=== PATIENT | female | born 1960 | race Caucasian/White ===

== ENCOUNTER 2017-01-25 19:38 | Inpatient (IN) | payer OTHER ==
--- NOTE | 2017-01-25 21:52 | PDOC ---
History of Present Illness - General History Source: Patient <Luis Alberto De Leon - Last Filed: 01/26/17 01:59> - General History Source: Patient Exam Limitations: No Limitations - History of Present Illness Initial Comments: 01/25/17 22:03 The patient is a 56 year old female with a significant past medical history of HTN (compliant with medication), who presents to the emergency department with abdominal pain for one month and bright red blood in stool for 2 weeks. The patient notes that her pain is exacerbated during and after eating. The patient states that her pain is intermittent and usually resolves on its own before reoccurring. She notes that she wanted to see if pain would resolve on it own because she is vacationing in [place]. She denies any fever, sick contacts, vomiting, nausea, or urinary complaints. PAST MEDICAL HISTORY: No significant history reported PAST SURGICAL HISTORY: Hysterectomy FAMILY HISTORY: Father: Heart Disease. Brother: Diabetes. SOCIAL HISTORY: None reported ALLERGIES: NKDA MEDICATIONS: Reviewed <Humberto Salamanca - Last Filed: 01/26/17 06:42> - General Chief Complaint: Pain, Acute Stated Complaint: RECTAL BLEED, VOMITING Time Seen by Provider: 01/25/17 19:55 Past History - Past Medical History GI Disorders: Yes (HEMORRHOIDS, constipation) HTN: Yes - Family Disease History Family Disease History: Diabetes: Brother, Heart Disease: Father - Psycho/Social/Smoking Cessation Hx Anxiety: No Suicidal Ideation: No Smoking History: Never smoked Hx Alcohol Use: No Drug/Substance Use Hx: No Substance Use Type: None <OttorobertLuis Alberto - Last Filed: 01/26/17 01:59> <Humberto Salamanca - Last Filed: 01/26/17 06:42> - Past Medical History Allergies/Adverse Reactions: Allergies Allergy/AdvReac Type Severity Reaction Status Date / Time No Known Allergies Allergy Verified 01/25/17 19:56 Home Medications: Ambulatory Orders Unobtainable [Unobtainable] 01/25/17 Review of Systems - Review of Systems Able to Perform ROS?: Yes Comments:: 01/25/17 22:03 CONSTITUTIONAL: Absent: fever, chills, diaphoresis, generalized weakness, malaise, loss of appetite HEENT: Absent: rhinorrhea, nasal congestion, throat pain, throat swelling, difficulty swallowing, mouth swelling, ear pain, eye pain, visual Changes CARDIOVASCULAR: Absent: chest pain, syncope, palpitations, irregular heart rate, lightheadedness , peripheral edema RESPIRATORY: Absent: cough, shortness of breath, dyspnea with exertion, orthopnea, wheezing, stridor, hemoptysis GASTROINTESTINAL: Present: Abdominal pain, bright red blood in stool. Absent: abdominal distension, nausea, vomiting, diarrhea, constipation, melena GENITOURINARY: Absent: dysuria, frequency, urgency, hesitancy, hematuria, flank pain, genital pain MUSCULOSKELETAL: Absent: myalgia, arthralgia, joint swelling SKIN: Absent: rash, itching, pallor HEMATOLOGIC/IMMUNOLOGIC: Absent: easy bleeding, easy bruising, lymphadenopathy, frequent infections ENDOCRINE: Absent: unexplained weight gain, unexplained weight loss, heat intolerance, cold intolerance NEUROLOGIC: Absent: headache, focal weakness or paresthesias, dizziness, unsteady gait, seizure, mental status changes, bladder or bowel incontinence PSYCHIATRIC: Absent: anxiety, depression, suicidal or homicidal ideation, hallucinations. <Humberto Salamanca - Last Filed: 01/26/17 06:42> *Physical Exam - Vital Signs Last Vital Signs Temp Pulse Resp BP Pulse Ox 98.5 F 85 18 152/99 97 01/25/17 20:03 01/25/17 20:03 01/25/17 20:03 01/25/17 20:03 01/25/17 20:03 <Luis Alberto De Leon - Last Filed: 01/26/17 01:59> - Vital Signs Last Vital Signs Temp Pulse Resp BP Pulse Ox 98.5 F 85 18 152/99 97 01/25/17 20:03 01/25/17 20:03 01/25/17 20:03 01/25/17 20:03 01/25/17 20:03 - Physical Exam Comments: 01/25/17 22:03 GENERAL: Well developed, well nourished. Awake and alert. In no acute distress. HEENT: Normocephalic, atraumatic. PERRLA, EOMI. No conjunctival pallor. Sclerae are non -icteric. Moist mucous membranes. Oropharynx is clear. NECK: Supple. Full ROM. No JVD. Carotid pulses 2+ and symmetric, without bruits. No thyromegaly. No lymphadenopathy. CARDIOVASCULAR: Regular rate and rhythm. No murmurs, rubs, or gallops. Distal pulses are 2+ and symmetric. PULMONARY: No evidence of respiratory distress. Lungs clear to auscultation bilaterally. No wheezing, rales or rhonchi. ABDOMINAL: Soft. Non-tender. Non-distended. No rebound or guarding. No organomegaly. Normoactive bowel sounds. MUSCULOSKELETAL Normal range of motion at all joints. No bony deformities or tenderness. No CVA tenderness. RECTAL: Hem negative, brown stool pods of external hemorrhoids EXTREMITIES: No cyanosis. No clubbing. No edema. No calf tenderness. SKIN: Warm and dry. Normal capillary refill. No rashes. No jaundice. NEUROLOGICAL: Alert, awake, appropriate. Cranial nerves 2-12 intact. No deficits to light touch and temperature in face, upper extremities and lower extremities. No motor deficits in the in face, upper extremities and lower extremities. Normoreflexic in the upper and lower extremities. Normal speech. Toes are downgoing bilaterally. Gait is normal without ataxia. PSYCHIATRIC: Cooperative. Good eye contact. Appropriate mood and affect. <Humberto Salamanca - Last Filed: 01/26/17 06:42> Heart Score/ECG Review - ECG Impressions Comment:: 01/26/17 03:03 Normal sinus rhythm. Nonspecific T wave abnormality. Prolonged QT. Abnormal ECG. <Humberto Salamanca - Last Filed: 01/26/17 06:42> ED Treatment Course - LABORATORY CBC & Chemistry Diagram: 01/25/17 22:05 01/25/17 22:05 <Luis Alberto De Leon - Last Filed: 01/26/17 01:59> - LABORATORY CBC & Chemistry Diagram: 01/26/17 06:05 01/25/17 22:05 - RADIOLOGY Radiograph Interpretation: 01/26/17 00:18 EXAM: CHEST X-RAY. IMPRESSION: No new acute pathology appreciated. Waiting for official report. 01/26/17 01:53 Exam: Contrast-enhanced CT abdomen and pelvis Images: 337 Clinical indication : Pain and bleeding. Findings: The lung bases are clear. The liver, gallbladder spleen and pancreas all have a normal appearance. The adrenal glands are unremarkable. The kidneys have a normal appearance and enhance symmetrically. There is no evidence of urinary tract obstruction. Contrast has transited from the stomach to mid small bowel loops. Segments of small bowel in the midabdomen are distended up to 3 cm in diameter. A transition point is not clearly identified. There is stranding and fluid seen throughout the central small bowel mesentery. Distal bowel loops in the pelvis are nondistended. Free fluid is noted in the pelvis. Gas and stool is seen throughout the colon. The patient is status post hysterectomy. The urinary bladder is not entirely included. The pubic symphysis and urinary bladder are not included on the axial images. Reformatted image of the inferior pelvis demonstrate post hysterectomy change in the normal appearance of the urinary bladder. A midline incisional scar is seen below the umbilicus. No abdominal or pelvic adenopathy is seen. No lytic or blastic destructive osseous lesions are seen. Impression: Findings consistent with an early or incomplete bowel obstruction. The transition point is not clearly identified but appears to involve the mid to distal bowel, likely secondary to post hysterectomy adhesions. THIS DOCUMENT HAS BEEN ELECTRONICALLY SIGNED Fermin Woods M.D. 01/26/2017 01:51 EST <Humberto Salamanca - Last Filed: 01/26/17 06:42> Medical Decision Making - Medical Decision Making 01/26/17 01:59 Dr. De Leon: The scribe's documentation has been prepared under my direction and personally reviewed by me in its entirery. I confirm that the note above accurately reflects all work, treatment, procedures, and medical decision making performed by me. <Luis Alberto De Leon - Last Filed: 01/26/17 01:59> *DC/Admit/Observation/Transfer - Discharge Dispostion Admit: Yes <Luis Alberto De Leon - Last Filed: 01/26/17 01:59> - Attestations Scribe Attestion: 01/25/17 22:04 Documentation prepared by Humberto Salamanca, acting as medical billing manager for Luis Ablerto De Leon DO. <Humberto Salamanca - Last Filed: 01/26/17 06:42> Diagnosis at time of Disposition: SBO (small bowel obstruction)
[2017-01-25] MEDS ORDERED: SODIUM CHLORIDE 1,000 ML IV STA (21:53)
[2017-01-25 22:23] LABS: BASOPHIL 0.3 % (0-2.0); EOSINOPHIL 0.2 % (0-4.5); MCH 30.4 pg (25.7-33.7); MCHC 33.6 g/dl (32.0-36.0); MEAN CELL VOLUME 90.5 fl (80-96); NEUTROPHILS 84.8 % (42.8-82.8); PLATELET COUNT 237 K/MM3 (134-434); RDW 13.3 % (11.6-15.6); WHITE BLOOD COUNT 10.1 K/mm3 (4.0-10.0)
[2017-01-25 22:35] LABS: INR 1.05 (0.82-1.09); PROTHROMBIN TIME (PATIENT) 11.6 SEC (9.98-11.88)
[2017-01-25 22:41] LABS: MAGNESIUM 2.3 mg/dL (1.8-2.4)
[2017-01-25 22:44] LABS: AMYLASE 90 U/L (25-115); ANION GAP 6 (8-16); BILIRUBIN,TOTAL 0.4 mg/dL (0.2-1.0); CALCIUM 9.9 mg/dL (8.5-10.1); CO2 32 mmol/L (21-32); CREATININE 0.9 mg/dL (0.55-1.02); GLUCOSE,RANDOM 126 mg/dL (74-106); SGOT/AST 18 U/L (15-37); SGPT/ALT 17 U/L (12-78); TOT PROT 7.3 g/dl (6.4-8.2)
[2017-01-25 22:45] LABS: ALK PHOS 62 U/L (45-117)
--- NOTE | 2017-01-26 02:33 | HP ---
<Brina Lopez - Last Filed: 01/26/17 03:25> CHIEF COMPLAINT: Abdominal pain x1 month and bright red blood in stool x2 weeks. PCP: None HISTORY OF PRESENT ILLNESS: 56 yo F with a PMHx of HTN who presents with abdominal pain x1 month. Pain worsened with eating. Also notes bright red blood in stool x2 weeks with prior Hx of hemorrhoids. Patient states that pain is intermittent in nature. Last BM was 7am in the morning. Patient denies diarrhea. Patient endorses vomiting x5 today. Patient states she feels a burning sensation in her abdomen when she gets hungry. Patient states shes had hemorrhoids bleeding in past, she thinks this bleeding is from her hemorrhoids. ER course was notable for: (1) CT abdomen with incomplete SBO (2) Mild leukocytosis at 10.1 (3) Rectal exam positive for hemorrhoids Recent Travel: Yes, came to [place] from [facility] 1 month ago PAST MEDICAL HISTORY: HTN, hemorrhoids PAST SURGICAL HISTORY: Hysterectomy Social History: Smoking: denies Alcohol: denies Drugs: denies Family History: Nonobtainable Allergies No Known Allergies Allergy (Verified 01/25/17 19:56) HOME MEDICATIONS: Home Medications Medication Instructions Recorded Unobtainable [Unobtainable] 01/25/17 REVIEW OF SYSTEMS CONSTITUTIONAL: Absent: fever, chills, diaphoresis, generalized weakness, malaise, loss of appetite, weight change HEENT: Absent: rhinorrhea, nasal congestion, throat pain, throat swelling, difficulty swallowing, mouth swelling, ear pain, eye pain, visual changes CARDIOVASCULAR: Absent: chest pain, syncope, palpitations, irregular heart rate, lightheadedness , peripheral edema RESPIRATORY: Absent: cough, shortness of breath, dyspnea with exertion, orthopnea, wheezing, stridor, hemoptysis GASTROINTESTINAL: +Abdominal pain, nausea, vomiting x5, hematochezia Absent: abdominal distension, diarrhea, constipation, melena GENITOURINARY: Absent: dysuria, frequency, urgency, hesitancy, hematuria, flank pain, genital pain MUSCULOSKELETAL: Absent: myalgia, arthralgia, joint swelling, back pain, neck pain SKIN: Absent: rash, itching, pallor HEMATOLOGIC/IMMUNOLOGIC: Absent: easy bleeding, easy bruising, lymphadenopathy, frequent infections ENDOCRINE: Absent: unexplained weight gain, unexplained weight loss, heat intolerance, cold intolerance NEUROLOGIC: Absent: headache, focal weakness or paresthesias, dizziness, unsteady gait, seizure, mental status changes, bladder or bowel incontinence PSYCHIATRIC: Absent: anxiety, depression, suicidal or homicidal ideation, hallucinations. PHYSICAL EXAMINATION GENERAL: Awake, alert, and fully oriented, in no acute distress. HEAD: Normal with no signs of trauma. EYES: Pupils equal, round and reactive to light, extraocular movements intact, sclera anicteric, conjunctiva clear. No lid lag. EARS, NOSE, THROAT: Ears normal, nares patent, oropharynx clear without exudates. Moist mucous membranes. NECK: Normal range of motion, supple without lymphadenopathy, JVD, or masses. LUNGS: Breath sounds equal, clear to auscultation bilaterally. No wheezes, and no crackles. No accessory muscle use. HEART: Regular rate and rhythm, normal S1 and S2 without murmur, rub or gallop. ABDOMEN: Soft, nontender, not distended, normoactive bowel sounds, no guarding, no rebound, no masses. No hepatomegaly or splenomegaly. Midline surgical scar. RECTAL EXAM: External hemorrhoids. Brown stool in rectal vault no fissures. MUSCULOSKELETAL: Normal range of motion at all joints. No bony deformities or tenderness. No CVA tenderness. UPPER EXTREMITIES: 2+ pulses, warm, well-perfused. No cyanosis. No clubbing. No peripheral edema. LOWER EXTREMITIES: 2+ pulses, warm, well-perfused. No calf tenderness. No peripheral edema. NEUROLOGICAL: Cranial nerves II-XII intact. Normal speech. Gait not assessed. PSYCHIATRIC: Cooperative. Good eye contact. Appropriate mood and affect. SKIN: Warm, dry, normal turgor, no rashes or lesions noted, normal capillary refill. Laboratory Results - last 24 hr 01/26/17 03:10 Stool Occult Blood Negative CT Abdomen and Pelvis Exam: Contrast-enhanced CT abdomen and pelvis Images: 337 Clinical indication : Pain and bleeding. Findings: The lung bases are clear. The liver, gallbladder spleen and pancreas all have a normal appearance. The adrenal glands are unremarkable. The kidneys have a normal appearance and enhance symmetrically. There is no evidence of urinary tract obstruction. Contrast has transited from the stomach to mid small bowel loops. Segments of small bowel in the midabdomen are distended up to 3 cm in diameter. A transition point is not clearly identified. There is stranding and fluid seen throughout the central small bowel mesentery. Distal bowel loops in the pelvis are nondistended. Free fluid is noted in the pelvis. Gas and stool is seen throughout the colon. The patient is status post hysterectomy. The urinary bladder is not entirely included. The pubic symphysis and urinary bladder are not included on the axial images. Reformatted image of the inferior pelvis demonstrate post hysterectomy change in the normal appearance of the urinary bladder. A midline incisional scar is seen below the umbilicus. No abdominal or pelvic adenopathy is seen. No lytic or blastic destructive osseous lesions are seen. Impression: Findings consistent with an early or incomplete bowel obstruction. The transition point is not clearly identified but appears to involve the mid to distal bowel, likely secondary to post hysterectomy adhesions. THIS DOCUMENT HAS BEEN ELECTRONICALLY SIGNED Fermin Woods M.D. 01/26/2017 01:51 EST ECG NSR @ 71 with QTC 471 ASSESSMENT/PLAN: 56 yo F with a PMHx of HTN who presents with abdominal pain and bright red blood per rectum being admitted for SBO and GI bleed. 1.) SBO -NPO -IVF -Type and Screen -Surgery consult -NGT 2.) Bright red blood per rectum. Most likely hemorrhoidal -HGB stable. Repeat in 6 hours -Coags -GI consult if decrease in HGB -IVF -Stool cult 3.) HTN -Unknown home meds -Pts from [facility] -Repeat BP, if uncontrolled give Amlodipine DVT ppx -Low risk -SCDs Documentation is prepared by Brina Lopez acting as medical records assistant for Samantha Perdue D.O. <Samantha Perdue - Last Filed: 01/27/17 07:14> CHIEF COMPLAINT: PCP: HISTORY OF PRESENT ILLNESS: ER course was notable for: (1) (2) (3) Recent Travel: PAST MEDICAL HISTORY: PAST SURGICAL HISTORY: Social History: Smoking: Alcohol: Drugs: Family History: Allergies No Known Allergies Allergy (Verified 01/25/17 19:56) HOME MEDICATIONS: Home Medications Medication Instructions Recorded Unobtainable [Unobtainable] 01/25/17 REVIEW OF SYSTEMS CONSTITUTIONAL: Absent: fever, chills, diaphoresis, generalized weakness, malaise, loss of appetite, weight change HEENT: Absent: rhinorrhea, nasal congestion, throat pain, throat swelling, difficulty swallowing, mouth swelling, ear pain, eye pain, visual changes CARDIOVASCULAR: Absent: chest pain, syncope, palpitations, irregular heart rate, lightheadedness , peripheral edema RESPIRATORY: Absent: cough, shortness of breath, dyspnea with exertion, orthopnea, wheezing, stridor, hemoptysis GASTROINTESTINAL: Absent: abdominal pain, abdominal distension, nausea, vomiting, diarrhea, constipation, melena, hematochezia GENITOURINARY: Absent: dysuria, frequency, urgency, hesitancy, hematuria, flank pain, genital pain MUSCULOSKELETAL: Absent: myalgia, arthralgia, joint swelling, back pain, neck pain SKIN: Absent: rash, itching, pallor HEMATOLOGIC/IMMUNOLOGIC: Absent: easy bleeding, easy bruising, lymphadenopathy, frequent infections ENDOCRINE: Absent: unexplained weight gain, unexplained weight loss, heat intolerance, cold intolerance NEUROLOGIC: Absent: headache, focal weakness or paresthesias, dizziness, unsteady gait, seizure, mental status changes, bladder or bowel incontinence PSYCHIATRIC: Absent: anxiety, depression, suicidal or homicidal ideation, hallucinations. PHYSICAL EXAMINATION GENERAL: Awake, alert, and fully oriented, in no acute distress. HEAD: Normal with no signs of trauma. EYES: Pupils equal, round and reactive to light, extraocular movements intact, sclera anicteric, conjunctiva clear. No lid lag. EARS, NOSE, THROAT: Ears normal, nares patent, oropharynx clear without exudates. Moist mucous membranes. NECK: Normal range of motion, supple without lymphadenopathy, JVD, or masses. LUNGS: Breath sounds equal, clear to auscultation bilaterally. No wheezes, and no crackles. No accessory muscle use. HEART: Regular rate and rhythm, normal S1 and S2 without murmur, rub or gallop. ABDOMEN: Soft, nontender, not distended, normoactive bowel sounds, no guarding, no rebound, no masses. No hepatomegaly or splenomegaly. MUSCULOSKELETAL: Normal range of motion at all joints. No bony deformities or tenderness. No CVA tenderness. UPPER EXTREMITIES: 2+ pulses, warm, well-perfused. No cyanosis. No clubbing. No peripheral edema. LOWER EXTREMITIES: 2+ pulses, warm, well-perfused. No calf tenderness. No peripheral edema. NEUROLOGICAL: Cranial nerves II-XII intact. Normal speech. Normal gait. PSYCHIATRIC: Cooperative. Good eye contact. Appropriate mood and affect. SKIN: Warm, dry, normal turgor, no rashes or lesions noted, normal capillary refill. ASSESSMENT/PLAN: Visit type - Emergency Visit Emergency Visit: Yes ED Registration Date: 01/26/17 Care time: The patient presented to the Emergency Department on the above date and was hospitalized for further evaluation of their emergent condition. - New Patient This patient is new to me today: Yes Date on this admission: 01/27/17 - Critical Care Critical Care patient: No
[2017-01-26] MEDS ORDERED: SODIUM CHLORIDE 1,000 ML IV SCH (02:45)
[2017-01-26] MEDS: SODIUM CHLORIDE 1,000 ML IV SCH (03:26)
[2017-01-26 06:15] LABS: MCH 30.3 pg (25.7-33.7); MCHC 33.4 g/dl (32.0-36.0); MEAN CELL VOLUME 90.7 fl (80-96); MEAN PLT VOLUME 7.8 fl (7.5-11.1); PLATELET COUNT 220 K/MM3 (134-434); RDW 13.1 % (11.6-15.6); WHITE BLOOD COUNT 7.9 K/mm3 (4.0-10.0)
[2017-01-26 06:28] LABS: INR 1.05 (0.82-1.09); PROTHROMBIN TIME (PATIENT) 11.6 SEC (9.98-11.88)
[2017-01-26 06:31] LABS: ACTIVATED PTT 33.2 SECONDS (26.9-34.4)
[2017-01-26 06:43] LABS: ANION GAP 7 (8-16); CALCIUM 8.3 mg/dL (8.5-10.1); CO2 30 mmol/L (21-32); CREATININE 0.6 mg/dL (0.55-1.02); GLUCOSE,RANDOM 98 mg/dL (74-106)
[2017-01-26 06:51] VITALS: BMI 30.4
--- NOTE | 2017-01-26 07:46 | CONSULT ---
Consult Consult Specialty:: Surgery Reason for Consultation:: Rectal bleeding, intestinal obstruction. - History of Present Illness Chief Complaint: Rectal bleeding, and right lower abdominal pain. - History Source History Provided By: Patient Limitations to Obtaining History: Language Barrier (Speaks Portugese) - Past Medical History ...: No - Past Surgical History Additional Surgical History: Lower abdominal midline surgical scar, ? manager intern surgery. - Alcohol/Substance Use Hx Alcohol Use: Yes (occaissional social drink) - Smoking History Smoking history: Former smoker Have you smoked in the past 12 months: No If you are a former smoker, when did you quit?: 14 years ago Home Medications - Allergies Allergies/Adverse Reactions: Allergies Allergy/AdvReac Type Severity Reaction Status Date / Time No Known Allergies Allergy Verified 01/25/17 19:56 - Home Medications Home Medications: Ambulatory Orders Captopril 25 mg PO DAILY 01/26/17 Folic Acid 1 mg PO DAILY 01/26/17 Non-Formulary 0 mg PO ASDIR 01/26/17 Valsartan/Hydrochlorothiazide [Valsartan-Hctz 160-12.5 mg Tab] 1 each PO DAILY 01/26/17 Physical Exam Vital Signs: Vital Signs Temperature 97.7 F 01/26/17 06:36 Pulse Rate 73 01/26/17 06:36 Respiratory Rate 18 01/26/17 06:36 Blood Pressure 159/99 01/26/17 06:36 O2 Sat by Pulse Oximetry (%) 98 01/26/17 06:02 Gastrointestinal: Yes: Other (? Some fullness in the right lower quadrtant of abdomen. No distinct mass is palpable.) Labs: CBC, BMP 01/26/17 06:05 01/26/17 06:05 Imaging - Results X-ray: Report Reviewed, Image Reviewed Cat Scan: Report Reviewed, Image Reviewed (Dilated loops of small bowel upto 3 cm. with air and stool on the colon. Fuid in the pelvis. Edematous mesentery.) Problem List - Problems (1) SBO (small bowel obstruction) Code(s): K56.69 - OTHER INTESTINAL OBSTRUCTION (2) Abdominal pain Code(s): R10.9 - UNSPECIFIED ABDOMINAL PAIN Qualifiers: Abdominal location: right lower quadrant Qualified Code(s): R10.31 - Right lower quadrant pain (3) Rectal bleeding Code(s): K62.5 - HEMORRHAGE OF ANUS AND RECTUM Assessment/Plan Place NG tube v, and connect it to suction. G.I consultation for sigmoidoscopy. Follow up abdominal X-ray., and lab work.
[2017-01-26] MEDS ORDERED: LIDOCAINE HCL 2% (50ML VIAL) SQ ONE (11:01)
[2017-01-26] MEDS ORDERED: LIDOCAINE VISCOUS 2% ORAL/TOP 100 ML BOTTLE MM ONE (11:15)
--- NOTE | 2017-01-26 11:36 | EKG ---
Test Reason : Blood Pressure : / mmHG Vent. Rate : 071 BPM Atrial Rate : 071 BPM P-R Int : 180 ms QRS Dur : 088 ms QT Int : 434 ms P-R-T Axes : 062 041 066 degrees QTc Int : 471 ms NORMAL SINUS RHYTHM NONSPECIFIC T WAVE ABNORMALITY PROLONGED QT ABNORMAL ECG NO PREVIOUS ECGS AVAILABLE Confirmed by JANNA SILVA, LOUIS ([id number]) on 01/26/2017 11:36:00 AM Referred By: Confirmed By:LOUIS SALDIVAR MD
--- NOTE | 2017-01-26 13:47 | HOSP ---
Physical Examination Vital Signs: Vital Signs Temperature 97.8 F 01/26/17 10:00 Pulse Rate 76 01/26/17 10:00 Respiratory Rate 18 01/26/17 10:00 Blood Pressure 148/92 01/26/17 10:00 O2 Sat by Pulse Oximetry (%) 97 01/26/17 09:00 Labs: CBC, BMP 01/26/17 06:05 01/26/17 06:05 Hospitalist Encounter Assessment: Called to place NGT after unsuccessful attempts x3. Nares prepped with Viscous Lidocaine and left in place for 20 minutes. Nebulized lidocaine given also. 16F NGT placed in right nare without difficulty. Advanced to 60cm reginald. Secured with commercially prepared device. Pt tolerated procedure well. Gurgling over stomach appreciated s/p insertion. CXR shows distal tip of NGT past the EG junction over stomach. NGT connected to LWS.
--- NOTE | 2017-01-26 16:11 | CON.GI ---
Consult Consult Specialty:: GI Referred by:: Dr. Vega Reason for Consultation:: Rectal bleeding - History of Present Illness Chief Complaint: Abdominal pain and vomiting History of Present Illness: 56 year old woman visiting from [facility] admitted for evaluation of abdominal pain N/V. CT scan revealed partial SBO, patient was seen by Dr. Vega the surgeon and NGT was placed. Her daughter tells me that Ms. Ling has had intermittent blood mixed in her stool with bowel movements. She has never had an upper endoscopy or colonoscopy. There is no family history of colorectal cancer or other GI malignancy. Her last BM was today. - History Source History Provided By: Patient, Family Member Limitations to Obtaining History: No Limitations - Past Medical History Cardio/Vascular: Yes: HTN ...: No - Past Surgical History Past Surgical History: Yes: Hysterectomy (with removal of 1 ovary) Additional Surgical History: right ankle surgery x 2, ? adenoid surgery - Alcohol/Substance Use Hx Alcohol Use: Yes (occaissional social drink) History of Substance Use: reports: None - Smoking History Smoking history: Former smoker Have you smoked in the past 12 months: No If you are a former smoker, when did you quit?: 14 years ago - Social History Usual Living Arrangement: With Spouse ADL: Independent Occupation: retired Place of : Other ([facility]) History of Recent Travel: Yes (from [facility] to ) Home Medications - Allergies Allergies/Adverse Reactions: Allergies Allergy/AdvReac Type Severity Reaction Status Date / Time No Known Allergies Allergy Verified 01/25/17 19:56 - Home Medications Home Medications: Ambulatory Orders Captopril 25 mg PO DAILY 01/26/17 Folic Acid 1 mg PO DAILY 01/26/17 Non-Formulary 0 mg PO ASDIR 01/26/17 Valsartan/Hydrochlorothiazide [Valsartan-Hctz 160-12.5 mg Tab] 1 each PO DAILY 01/26/17 Family Disease History - Family Disease History Family Disease History: Other: Father ( 84 from intestinal bleeding), Mother ( 85, unclear cause), Brother (3 brothers, 1 w/ CAD) Other Family History: No family history of colorectal cancer or other GI malignancy Review of Systems - Review of Systems Constitutional: denies: Weakness Cardiovascular: denies: Chest Pain Respiratory: denies: SOB Gastrointestinal: reports: Abdominal Pain, Rectal Bleeding, Vomiting Physical Exam-GI Vital Signs: Vital Signs Temperature 99.9 F H 01/26/17 14:00 Pulse Rate 83 01/26/17 14:00 Respiratory Rate 16 01/26/17 14:00 Blood Pressure 146/91 01/26/17 14:00 O2 Sat by Pulse Oximetry (%) 97 01/26/17 09:00 Constitutional: Yes: Calm Eyes: No: Sclera Icterus Cardiovascular: Yes: Regular Rate and Rhythm Respiratory: Yes: CTA Bilaterally Gastrointestinal Inspection: Yes: Distention ...Auscultate: Yes: Normoactive Bowel Sounds ...Palpate: Yes: Tenderness ...Percussion: Yes: Tympanitic (mildly tympanitic) ...Rectal Exam: Yes: Other (No external lesions, no masses, no stool to guaiac, no blood) Edema: No Neurological: Yes: Alert, Oriented Labs: CBC, BMP 01/26/17 06:05 01/26/17 06:05 INR, PTT INR 1.05 (0.82-1.09) 01/26/17 06:05 Imaging - Results Cat Scan: Report Reviewed, Image Reviewed Problem List - Problems (1) SBO (small bowel obstruction) Assessment/Plan: Evaluated by surgery Currently with NGT decompression Code(s): K56.69 - OTHER INTESTINAL OBSTRUCTION (2) Rectal bleeding Assessment/Plan: No overt rectal bleed currently. When cleared from bowel obstruction, colonoscopy can be undertaken prior to discharge if feasible. I discussed this with Ms. Ling and her daughter. Please recall when she is cleared for colonoscopy/bowel prep Code(s): K62.5 - HEMORRHAGE OF ANUS AND RECTUM
[2017-01-26] MEDS ORDERED: ACETAMINOPHEN 650 MG SUPP.RECT PR PRN (22:15)
[2017-01-27] MEDS: SODIUM CHLORIDE 1,000 ML IV SCH ×2 (04:15→17:08)
--- NOTE | 2017-01-27 15:24 | PN ---
Physical Exam: SUBJECTIVE: Patient seen and examined. Her abd pain is less. She is + bm and + flatuance events - low grade fever last niht 100.4 OBJECTIVE: Vital Signs Period Temp Pulse Resp BP Sys/Mathew Pulse Ox Last 24 Hr 98.3 F-100.4 F 81-93 16-20 124-153/83-97 96-96 PE Neuro: alert, awake, cn 2-12intact HEENT: NGT light brown output Pulm: CTAB CV: s1 s2 rrr no mrg Abd: epigastric tenderness Ext: Warm no le edema Active Medications Generic Name Dose Route Start Last Admin Trade Name Freq PRN Reason Stop Dose Admin Acetaminophen 650 mg 01/26/17 22:15 01/26/17 22:36 Tylenol Suppository - [place] 650 mg Q6H PRN Administration FEVER OR PAIN Sodium Chloride 1,000 mls @ 75 mls/hr 01/26/17 03:24 01/27/17 04:15 Normal Saline - IV 75 mls/hr ASDIR ROGERS Administration Assessment: 56 year old female with a PMHx of HTN who presents with abdominal pain and bright red blood per rectum being admitted for SBO and GI bleed. 1. SBO - Today abd xray pending read - NGT in place - NS 75cc/hr - Surgery 2. Rectal bleeding - Stool occult negative - Will need bowel prep and colonoscopy before discharge - GI to preform once ready 3. HTN - Stable without meds - Unknown abby med from home - If rises consider amlodipine Visit type - Emergency Visit Emergency Visit: Yes ED Registration Date: 01/26/17 Care time: The patient presented to the Emergency Department on the above date and was hospitalized for further evaluation of their emergent condition. - New Patient This patient is new to me today: Yes Date on this admission: 01/27/17 - Critical Care Critical Care patient: No
--- NOTE | 2017-01-28 11:50 | PN ---
Progress Note (short form) - Note Progress Note: SUBJECTIVE: The patient was seen and examined at the bedside, she reports having a bowel movement this morning and is passing gas F/u abd x-ray today Spoke to Dr. Parada who states will see the patient this afternoon Current Medications Generic Name Dose Route Start Last Admin Trade Name Freq PRN Reason Stop Dose Admin Acetaminophen 650 mg 01/26/17 22:15 01/26/17 22:36 Tylenol Suppository - [place] 650 mg Q6H PRN Administration FEVER OR PAIN Sodium Chloride 1,000 mls @ 75 mls/hr 01/26/17 03:24 01/27/17 17:08 Normal Saline - IV 75 mls/hr ASDIR ROGERS Administration OBJECTIVE: Vital Signs Period Temp Pulse Resp BP Sys/Mathew Pulse Ox Last 24 Hr 98.7 F-99.8 F 78-87 16-20 143-151/84-95 95-96 Physical Exam: General: NAD, A&Ox3 HEENT: NGT with clear brown output Lungs: CTA bilaterally Heart: RRR, S1S2 Abd: Soft, non-tender, non-distended. Normoactive bowel sounds Ext: Warm, well-perfused. 2+ DP/Pt bilaterally Neuro: CN 2-12 intact CBCD WBC 7.9 K/mm3 (4.0-10.0) 01/26/17 06:05 RBC 3.86 M/mm3 (3.60-5.2) 01/26/17 06:05 Hgb 11.7 GM/dL (10.7-15.3) 01/26/17 06:05 Hct 35.0 % (32.4-45.2) 01/26/17 06:05 MCV 90.7 fl (80-96) 01/26/17 06:05 MCHC 33.4 g/dl (32.0-36.0) 01/26/17 06:05 RDW 13.1 % (11.6-15.6) 01/26/17 06:05 Plt Count 220 K/MM3 (134-434) 01/26/17 06:05 MPV 7.8 fl (7.5-11.1) 01/26/17 06:05 CMP Sodium 142 mmol/L (136-145) 01/26/17 06:05 Potassium 4.2 mmol/L (3.5-5.1) 01/26/17 06:05 Chloride 105 mmol/L (98-107) 01/26/17 06:05 Carbon Dioxide 30 mmol/L (21-32) 01/26/17 06:05 Anion Gap 7 (8-16) L 01/26/17 06:05 BUN 12 mg/dL (7-18) D 01/26/17 06:05 Creatinine 0.6 mg/dL (0.55-1.02) D 01/26/17 06:05 Creat Clearance w eGFR > 60 (>60) 01/25/17 22:05 Random Glucose 98 mg/dL (74-106) D 01/26/17 06:05 Calcium 8.3 mg/dL (8.5-10.1) L 01/26/17 06:05 Total Bilirubin 0.4 mg/dL (0.2-1.0) 01/25/17 22:05 AST 18 U/L (15-37) 01/25/17 22:05 ALT 17 U/L (12-78) 01/25/17 22:05 Alkaline Phosphatase 62 U/L (45-117) 01/25/17 22:05 Total Protein 7.3 g/dl (6.4-8.2) 01/25/17 22:05 Albumin 4.0 g/dl (3.4-5.0) 01/25/17 22:05 Assessment: This is a 56 year old female with PMHx of HTN who presented to the ED with abdominal pain x1 month and bright red blood per rectum. Plan: 1) Partial SBO - Abd X-ray yesterday with no signs of obstruction, patient had BM today and reports passing gas - F/u Abx Xray this AM, if continues to improve, will d/c NGT and start clear liquid diet - Discussed plan with Dr. Parada who will evaluate the patient this afternoon. 2) Rectal bleeding - However stool for occult blood negative - Will need colonoscopy prior to discharge - Appreciate GI consult 3) HTN - Continue to monitor, will restart home medications once tolerating po 4) F/E/N: - Continue NPO for now - Monitor electrolytes 5) Prophylaxis: - OOB ambulating - SCDs bilaterally - Hold off on chemical DVT prophylaxis as the patient may need procedure 6) Dispo: - Requires continued inpatient care CODE STATUS: FULL CODE Visit type - Emergency Visit Emergency Visit: Yes ED Registration Date: 01/26/17 Care time: The patient presented to the Emergency Department on the above date and was hospitalized for further evaluation of their emergent condition. - New Patient This patient is new to me today: Yes Date on this admission: 01/28/17 - Critical Care Critical Care patient: No
[2017-01-28] MEDS: SODIUM CHLORIDE 1,000 ML IV SCH (18:12)
[2017-01-29 07:40] LABS: ALBUMIN 3.5 g/dl (3.4-5.0); ALK PHOS 50 U/L (45-117); ANION GAP 8 (8-16); BILIRUBIN,TOTAL 0.8 mg/dL (0.2-1.0); CALCIUM 8.8 mg/dL (8.5-10.1); CO2 27 mmol/L (21-32); CREATININE 0.5 mg/dL (0.55-1.02); GLUCOSE,RANDOM 88 mg/dL (74-106); SGOT/AST 14 U/L (15-37); SGPT/ALT 14 U/L (12-78); TOT PROT 6.5 g/dl (6.4-8.2)
[2017-01-29 07:44] LABS: MCH 31.1 pg (25.7-33.7); MCHC 34.8 g/dl (32.0-36.0); MEAN CELL VOLUME 89.3 fl (80-96); PLATELET COUNT 182 K/MM3 (134-434); RDW 12.6 % (11.6-15.6)
[2017-01-29] MEDS ORDERED: POTASSIUM CHLORIDE TABS 20 MEQ TABLET.ER (FP) PO ONE (07:48)
[2017-01-29] MEDS: SODIUM CHLORIDE 1,000 ML IV SCH (08:31)
--- NOTE | 2017-01-29 12:06 | PN ---
Progress Note (short form) - Note Progress Note: SUBJECTIVE: The patient was seen and examined at the bedside, she reports having a bowel movement this morning and is passing gas Current Medications Generic Name Dose Route Start Last Admin Trade Name Perez PRN Reason Stop Dose Admin Acetaminophen 650 mg 01/26/17 22:15 01/26/17 22:36 Tylenol Suppository - [place] 650 mg Q6H PRN Administration FEVER OR PAIN Amlodipine Besylate 10 mg 01/30/17 10:00 Norvasc - PO DAILY ROGERS Sodium Chloride 1,000 mls @ 75 mls/hr 01/26/17 03:24 01/29/17 08:31 Normal Saline - IV 75 mls/hr ASDIR ROGERS Administration Non-Formulary Medication 1 each 01/30/17 10:00 Valsartan/Hydrochlorothiazide [Valsartan-Hctz 160-12.5 Mg Tab] PO DAILY ROGERS OBJECTIVE: Vital Signs Period Temp Pulse Resp BP Sys/Mathew Pulse Ox Last 24 Hr 97.6 F-99.5 F 63-84 16-20 136-157/76-95 98 Physical Exam: General: NAD, A&Ox3 Lungs: CTA bilaterally Heart: RRR, S1S2 Abd: Soft, non-tender, non-distended. Normoactive bowel sounds Ext: Warm, well-perfused. 2+ DP/Pt bilaterally Neuro: CN 2-12 intact CBCD WBC 6.0 K/mm3 (4.0-10.0) 01/29/17 06:10 RBC 3.76 M/mm3 (3.60-5.2) 01/29/17 06:10 Hgb 11.7 GM/dL (10.7-15.3) 01/29/17 06:10 Hct 33.6 % (32.4-45.2) 01/29/17 06:10 MCV 89.3 fl (80-96) 01/29/17 06:10 MCHC 34.8 g/dl (32.0-36.0) 01/29/17 06:10 RDW 12.6 % (11.6-15.6) 01/29/17 06:10 Plt Count 182 K/MM3 (134-434) 01/29/17 06:10 MPV 8.0 fl (7.5-11.1) 01/29/17 06:10 CMP Sodium 142 mmol/L (136-145) 01/29/17 06:10 Potassium 3.4 mmol/L (3.5-5.1) L 01/29/17 06:10 Chloride 107 mmol/L (98-107) 01/29/17 06:10 Carbon Dioxide 27 mmol/L (21-32) 01/29/17 06:10 Anion Gap 8 (8-16) 01/29/17 06:10 BUN 10 mg/dL (7-18) 01/29/17 06:10 Creatinine 0.5 mg/dL (0.55-1.02) L 01/29/17 06:10 Creat Clearance w eGFR > 60 (>60) 01/29/17 06:10 Random Glucose 88 mg/dL (74-106) 01/29/17 06:10 Calcium 8.8 mg/dL (8.5-10.1) 01/29/17 06:10 Total Bilirubin 0.8 mg/dL (0.2-1.0) D 01/29/17 06:10 AST 14 U/L (15-37) L D 01/29/17 06:10 ALT 14 U/L (12-78) 01/29/17 06:10 Alkaline Phosphatase 50 U/L (45-117) 01/29/17 06:10 Total Protein 6.5 g/dl (6.4-8.2) 01/29/17 06:10 Albumin 3.5 g/dl (3.4-5.0) 01/29/17 06:10 Assessment: This is a 56 year old female with PMHx of HTN who presented to the ED with abdominal pain x1 month and bright red blood per rectum. Plan: 1) Partial SBO - X-ray with no evidence of obstruction - Advanced diet as discussed with Dr. Parada - Patient tolerating food, denies nausea and vomiting - She reports passing gas and having a bowel movement this morning 2) Rectal bleeding - However stool for occult blood negative - Will need colonoscopy about 1 week after discharge. Discussed with Dr. Parada who recommends allowing the patient to tolerate a regular diet for about 1 week prior to colonoscopy. Informed the patient and Dr. Castro of the same - Appreciate GI consult 3) HTN - Resume home medications 4) F/E/N: - Soft diet for lunch - Monitor electrolytes 5) Prophylaxis: - OOB ambulating - SCDs bilaterally 6) Dispo: - Discharge after lunch if continues to tolerate her diet CODE STATUS: FULL CODE Visit type - Emergency Visit Emergency Visit: Yes ED Registration Date: 01/26/17 Care time: The patient presented to the Emergency Department on the above date and was hospitalized for further evaluation of their emergent condition. - New Patient This patient is new to me today: No - Critical Care Critical Care patient: No
--- NOTE | 2017-01-29 16:57 | DS ---
Physical Examination Vital Signs: Vital Signs Temperature 98.7 F 01/29/17 06:08 Pulse Rate 73 01/29/17 06:08 Respiratory Rate 18 01/29/17 06:08 Blood Pressure 151/95 01/29/17 06:08 O2 Sat by Pulse Oximetry (%) 98 01/28/17 23:30 Labs: CBC, BMP 01/29/17 06:10 01/29/17 06:10 Discharge Summary Reason For Visit: SMALL BOWEL OBSTRUCTION Current Active Problems Abdominal pain (Acute) Rectal bleeding (Acute) SBO (small bowel obstruction) (Acute) Hospital Course: Spoke to Dr. Parada who states he spoke to the patient in her [place] tongue and that he believes her SBO has completely resolved based on examination and radiographic findings. He recommends the patient be discharged and follow-up with GI as an outpatient for colonoscopy. Condition: Improved - Instructions Diet, Activity, Other Instructions: Please return to the ED with new, persistent, or worsening symptoms. Please follow-up with providers as indicated. It is VERY important that you follow-up with GI (Dr. Caballero) within 1 week to schedule a colonoscopy to evaluate your rectal bleeding. Referrals: Dario Love [Staff Physician] - (Please follow-up with with surgery within 1 week) Chad Caballero MD [Staff Physician] - (Please follow-up with GI within 1 week to schedule an outpatient colonoscopy. ) Disposition: HOME - Home Medications Comprehensive Discharge Medication List: Ambulatory Orders Valsartan/Hydrochlorothiazide [Valsartan-Hctz 160-12.5 mg Tab] 1 each PO DAILY 01/26/17 Amlodipine Besylate 10 mg PO DAILY 01/27/17 Acetaminophen Suppository [Tylenol .Suppository -] 650 mg PO Q6H PRN #60 tab
[2017-01-29] MEDS ORDERED: VALSARTAN 160 MG TABLET (UD) PO SCH (17:30)
[2017-01-29] MEDS ORDERED: HYDROCHLOROTHIAZIDE 12.5 MG CAPSULE (FP) PO SCH (17:30)
[2017-01-29] MEDS ORDERED: hydrALAZINE HCL 10 MG TABLET PO ONE (19:56)
[2017-01-29 20:24] VITALS: PULSE 86; TEMP 99.2
[2017-01-29 20:25] VITALS: BP 188/112
--- NOTE | 2017-01-29 22:57 | HOSP ---
Subjective - Review of Symptoms Events since last encounter: Late entry for 8PM: Nurse reports pt wants to sign out AMA Subjective: Attended pt and daughter. Pt and daughter feel that pt will feel better and BP will come down if she is able to go home. Repeat BP done, still elevated. Pt and daughter state that she has been having difficulty sleeping and is unhappy with her roommate. Physical Examination Vital Signs: Vital Signs Temperature 99.2 F 01/29/17 19:50 Pulse Rate 86 01/29/17 19:50 Respiratory Rate 18 01/29/17 19:50 Blood Pressure 188/112 01/29/17 19:50 O2 Sat by Pulse Oximetry (%) 98 01/29/17 09:00 Labs: CBC, BMP 01/29/17 06:10 01/29/17 06:10 Hospitalist Encounter Assessment: Hypertension, uncontrolled - DW daughter and pt that BP is still very high, in fact is higher than earlier today. Pt and daughter are insistent that pt go home. Offered to speak to nursing warehouse shipping supervisor regarding a room change if possible. Pt still adamant about going home. Pt and daughter made aware of risks of uncontrolled BP inculding but not limited to CVA causing permanent disability and/or . Still insistent on going home. Given hydralazine 10mg x1. Pt instructed to f/u with PCP JINNY and return if any headache, blurred vision or s/s CVA.
[2017-01-30] MEDS ORDERED: HYDROCHLOROTHIAZIDE 12.5 MG CAPSULE (FP) PO SCH (10:00)
[2017-01-30] MEDS ORDERED: VALSARTAN 160 MG TABLET (UD) PO SCH (10:00)
[2017-01-30] MEDS ORDERED: amLODIPine BESYLATE 10 MG TABLET (FP) PO SCH (10:00)
== END 2017-01-29 20:30 | disposition home or self-care (01) | DRG 253 ==
LOC: JER 19:38 → JERBED 01-26 01:58 → UNDOADMIN 01-26 02:05 → J4S 01-26 06:33 → J7W 01-28 22:49
PROVIDERS: ADMIT Internal Medicine; ATTEND Registered Nurse
PROC: 0D9670Z Drainage of Stomach with Drainage Device, Via Natural or Artificial Opening (ICD-10-PCS; principal; 2017-01-26)
DX: K62.5 Hemorrhage of anus and rectum (principal); K56.60 Unspecified intestinal obstruction; I10 Essential (primary) hypertension; Z87.891 Personal history of nicotine dependence; R10.31 Right lower quadrant pain
CPT/HCPCS: 36415; 71010-TC; 74000-TC; 74020-TC; 74177-TC; 80048; 80053; 82150; 82272; 83690; 83735; 85025; 85027; 85610; 85730; 86850; 86900; 86901; 93005; 93010; 99282-25; 99285-25